=== PATIENT | female | born 1945 | race Caucasian/White ===

== ENCOUNTER → 2018-03-09 | Outpatient (CLI) | payer MEDICARE ==
[~2018-03-09] MED LIST: ACEDIPPM PO; ACET325 PO; CEPH500 PO; CIPR250 PO; COLE1 PO; CYAN100 PO; CYCL10 PO; DILT240 PO; DILT240ER PO; ERGO50000 PO; ESTR1 PO; FENO145 PO; FEXO180 PO; FEXPSEER PO; FURO20 PO; GLUC500 PO; HYDACE5 PO; HYDACE7.5 PO; LOSA25 PO; LOSHYD100 PO; METO5A PO; MULVITMINF PO; ONDA4 PO; ONDA4ODT MM; PANT40 PO; PHENA200 PO; PRAM.5 PO; PROC10 PO; ZOLP10 PO; [UNRECOGNIZED DRUG - OTHER]
[2018-03-09 13:53] LABS: Source, Urine Clean Catch
[2018-03-09 14:36] LABS: Bilirubin, Urine Neg (Neg); Blood, Urine 1+ (Neg); Glucose Qualitative, Urine Neg (Neg); Ketones, Urine Neg (Neg); Leukocyte Esterase, Urine 3+ (Neg); Nitrite, Urine Pos (Neg); Protein, Urine Neg (Neg); Specific Gravity, Urine 1.015 (1.003-1.022); Urobilinogen, Urine NORM (Normal)
[2018-03-09 14:47] LABS: Appearance, Urine Cloudy (Clear); Color, Urine Yellow (P-Yellow)
[2018-03-09 14:49] LABS: Bacteria Many /hpf; Squamous Epithelial Cells Rare /hpf (Few); White Blood Cells, Urine 50-100 /hpf (0-5)
== END | disposition home or self-care (01) ==
LOC: LAB SHORT 13:49 → LAB 13:49
PROVIDERS: Internal Medicine
DX: R30.0 Dysuria (principal)
CPT/HCPCS: 81001; 87077; 87086; 87147; 87186

== ENCOUNTER → 2019-01-07 | Outpatient (CLI) | payer MEDICARE | END | disposition home or self-care (01) | LOC: LAB 12:46 → LAB SHORT 12:46 → LAB FUT 01-05 10:15 | DX: R05 Cough (principal) | CPT/HCPCS: 87070; 87205 ==

== ENCOUNTER 2019-02-18 08:24 | Day surgery (SDC) | payer MEDICARE ==
[2019-04-19] MEDS ORDERED: TORSE20 PO (11:08)
[2019-04-19] MEDS ORDERED: VICODIN ES 7.51 EACH PO (11:08)
[2019-04-19] MEDS ORDERED: LOSA50 PO (11:08)
[2019-04-19] MEDS ORDERED: ONDANSETRON4 MG/2 ML PO (11:09)
[2019-04-19] MEDS ORDERED: Pedi-Dri 100,0060 GM TOP (11:09)
[2019-04-19] MEDS ORDERED: Fluocinonide60 ML TOP (11:10)
== END 2019-02-18 23:50 | disposition home or self-care (01) ==
LOC: MOI US 08:24
PROC: 0HBU3ZX Excision of Left Breast, Percutaneous Approach, Diagnostic (ICD-10-PCS; principal; 2019-02-18)
DX: D05.12 Intraductal carcinoma in situ of left breast (principal)
CPT/HCPCS: 19083; 77065; 88305; 88342; 88360; A4648

== ENCOUNTER 2019-03-14 08:28 | Day surgery (SDC) | payer MEDICARE ==
[2019-04-19] MEDS ORDERED: VICODIN ES 7.51 EACH PO (11:08)
[2019-04-19] MEDS ORDERED: LOSA50 PO (11:08)
[2019-04-19] MEDS ORDERED: TORSE20 PO (11:08)
[2019-04-19] MEDS ORDERED: Pedi-Dri 100,0060 GM TOP (11:09)
[2019-04-19] MEDS ORDERED: ONDANSETRON4 MG/2 ML PO (11:09)
[2019-04-19] MEDS ORDERED: Fluocinonide60 ML TOP (11:10)
== END 2019-03-14 22:52 | disposition home or self-care (01) ==
LOC: MOI US 08:28
DX: D05.12 Intraductal carcinoma in situ of left breast (principal)
CPT/HCPCS: 19285; 77065

== ENCOUNTER 2019-04-20 08:12 | Day surgery (SDC) | payer MEDICARE ==
[~2019-04-20] VITALS: Ht 170.2 cm; Wt 123.5 kg
[~2019-04-20 08:12] MED LIST changes: +Fluocinonide60 ML TOP; +LOSA50 PO; +ONDANSETRON4 MG/2 ML PO; +Pedi-Dri 100,0060 GM TOP; +TORSE20 PO; +VICODIN ES 7.51 EACH PO
--- NOTE | 2019-04-20 10:20 | NUR ---
Patient confirms NPO status and agrees with scheduled surgery. History, Chart, Medications and Allergies reviewed before start of procedure. Patient reports completing Chlorhexadine shower X2 prior to admission to hospital.Surgical site prepped with 2% Chlorhexidine cloth wipe. Patient States Post-Procedure ride home has been arranged. Lungs clear T/O to Auscultation.Ambulatory in Day Surgery
--- NOTE | 2019-04-20 13:11 | NUR ---
Discharge instructions reviewed with patient. Patient verbalizes understanding. Copy given to patient to take home. Patient States Post-Procedure ride home has been arranged. Discharged via wheelchair to private car for ride home.
== END 2019-04-20 13:15 | disposition home or self-care (01) ==
LOC: ORSCMMR 08:12 → ORD 09:45 → ORSCMMR 13:15
PROVIDERS: Surgery
PROC: 0HBU0ZZ Excision of Left Breast, Open Approach (ICD-10-PCS; principal; 2019-04-20 09:45)
DX: D05.12 Intraductal carcinoma in situ of left breast (principal); Z17.0 Estrogen receptor positive status [ER+]; I10 Essential (primary) hypertension; G47.33 Obstructive sleep apnea (adult) (pediatric); K21.9 Gastro-esophageal reflux disease without esophagitis; M79.7 Fibromyalgia; E66.01 Morbid (severe) obesity due to excess calories; Z68.41 Body mass index [BMI] 40.0-44.9, adult; Z79.899 Other long term (current) drug therapy
CPT/HCPCS: 76098; 88307; 88342; 88360; J0690; J1100; J2250; J2405; J2704; J2765; J3010; J7120

== ENCOUNTER 2019-05-23 07:51 | Day surgery (SDC) | payer MEDICARE ==
[~2019-05-23] VITALS: Ht 170.2 cm; Wt 127.5 kg
--- NOTE | 2019-05-23 08:39 | NUR ---
SPOKE WITH PATIENT IN RADIOLOGY DEPARTMENT PRIOR TO ADMIT TO DAY SURGERY. PATEINT DENIES ALLERGY TO HYDROCODONE AND ACETAMINOPHEN AND DESIRES REMOVAL FROM HER ALLERGY LIST.
[2019-05-23] MEDS ORDERED: METO25ER PO (08:46)
--- NOTE | 2019-05-23 09:32 | NUR ---
History, Chart, Medications and Allergies reviewed before start of procedure. Patient confirms NPO status and agrees with scheduled surgery. Patient States Post-Procedure ride home has been arranged with her .
--- NOTE | 2019-05-23 09:38 | NUR ---
Surgical site prepped with 2% Chlorhexidine cloth wipe.
--- NOTE | 2019-05-23 10:54 | NUR ---
PRESCRIPTIONS FROM DR BENTLEY GIVEN TO TO FILL AT PHARMACY. GLASSES BROUGHT TO PACU FOR SAFE KEEPING.
--- NOTE | 2019-05-23 12:53 | NUR ---
PT TO STEP. C/O PAIN TO SURGICAL SITE, 02/09. DRESSING D/I. BREAST BINDER IN PLACED. DR. BENTLEY IN AND SPOKE WITH PT.
--- NOTE | 2019-05-23 13:05 | NUR ---
ICE PACK PLACED TO SURGERY SITE.
--- NOTE | 2019-05-23 13:30 | NUR ---
WRITTEN AND VERBAL D/C INSTUCTIONS GIVEN TO PT AND WITH UNDERSTANDING.
--- NOTE | 2019-05-23 13:35 | NUR ---
NO CHANGE IN INCISION SITE. DRESSING DRY.
== END 2019-05-23 13:50 | disposition home or self-care (01) ==
LOC: NM 07:51 → ORSCMMR 07:51 → NM 09:00 → ORSCMMR 13:50
PROVIDERS: Surgery
PROC: 0HBU0ZZ Excision of Left Breast, Open Approach (ICD-10-PCS; principal; 2019-05-23 10:00)
PROC: 07B60ZX Excision of Left Axillary Lymphatic, Open Approach, Diagnostic (ICD-10-PCS; principal; 2019-05-23 10:00)
DX: D05.12 Intraductal carcinoma in situ of left breast (principal); D36.0 Benign neoplasm of lymph nodes; I10 Essential (primary) hypertension; G47.33 Obstructive sleep apnea (adult) (pediatric); F17.210 Nicotine dependence, cigarettes, uncomplicated; E66.01 Morbid (severe) obesity due to excess calories; Z68.41 Body mass index [BMI] 40.0-44.9, adult; Z79.899 Other long term (current) drug therapy
CPT/HCPCS: 38792; 88307; 88342; A9520; J0690; J1100; J1885; J2250; J2405; J2704; J3010; J7120; Q9968

== ENCOUNTER → 2019-07-11 | Outpatient (CLI) | payer MEDICARE ==
[~2019-07-11] MED LIST changes: +METO25ER PO
== END | disposition home or self-care (01) ==
LOC: LAB 13:48 → LAB SHORT 13:48
DX: L08.0 Pyoderma (principal)
CPT/HCPCS: 87070; 87205

== ENCOUNTER 2019-09-22 08:08 | Day surgery (SDC) | payer MEDICARE ==
[~2019-09-22] VITALS: Ht 165.1 cm; Wt 125.0 kg
[~2019-09-22 08:08] MED LIST changes: +ANASTROZOLE PO; +ATOR20 PO; +Aspirin EC81 MG PO; +Fluocinonide15 GM; +HYDROCODON-ACE1 EAC4 PO; +HYDROCORTISONE30 GM; +METO5 PO; +MULTIPLE VITAM1 EACH PO; +Metoclopramide H5 MG PO; +POTA10T PO; +PRAMIPEXOLE DIHY1 M1; +Pedi-Dri 100,0060 GM; +SPIR50 PO; +Super B Comple1 EAC2 PO; +Vitamin D2000 UNIT
--- NOTE | 2019-09-22 10:03 | NUR ---
09/22/19 1003 Genet Trimble OXYGEN 10L VIA NON REBREATHER
== END 2019-09-22 11:01 | disposition home or self-care (01) ==
LOC: ORSCSDS 08:08
PROVIDERS: Surgery
PROC: 0DBH8ZX Excision of Cecum, Via Natural or Artificial Opening Endoscopic, Diagnostic (ICD-10-PCS; principal; 2019-09-22 09:45)
PROC: 0DBK8ZX Excision of Ascending Colon, Via Natural or Artificial Opening Endoscopic, Diagnostic (ICD-10-PCS; principal; 2019-09-22 09:45)
PROC: 0DBL8ZX Excision of Transverse Colon, Via Natural or Artificial Opening Endoscopic, Diagnostic (ICD-10-PCS; principal; 2019-09-22 09:45)
PROC: 0DBM8ZX Excision of Descending Colon, Via Natural or Artificial Opening Endoscopic, Diagnostic (ICD-10-PCS; principal; 2019-09-22 09:45)
DX: Z12.11 Encounter for screening for malignant neoplasm of colon (principal); Z86.010 Personal history of colon polyps; D12.3 Benign neoplasm of transverse colon; D12.0 Benign neoplasm of cecum; D12.2 Benign neoplasm of ascending colon; D12.4 Benign neoplasm of descending colon; G47.33 Obstructive sleep apnea (adult) (pediatric); I10 Essential (primary) hypertension; K21.9 Gastro-esophageal reflux disease without esophagitis; E66.01 Morbid (severe) obesity due to excess calories; Z68.42 Body mass index [BMI] 45.0-49.9, adult; Z79.899 Other long term (current) drug therapy; Z79.82 Long term (current) use of aspirin
CPT/HCPCS: 82947; 88305; J2250; J2405; J2704; J7120

== ENCOUNTER → 2019-12-05 | Outpatient (CLI) | payer MEDICARE ==
[2019-12-05 14:20] LABS: Source, Urine Clean Catch
[2019-12-05 18:46] LABS: Bilirubin, Urine Neg (Neg); Blood, Urine 2+ (Neg); Glucose Qualitative, Urine Neg (Neg); Ketones, Urine Neg (Neg); Leukocyte Esterase, Urine 1+ (Neg); Nitrite, Urine Neg (Neg); Protein, Urine Neg (Neg); Urobilinogen, Urine NORM (Normal)
[2019-12-05 18:59] LABS: Appearance, Urine Clear (Clear); Color, Urine Yellow (P-Yellow)
[2019-12-05 19:00] LABS: Bacteria Few /hpf; Squamous Epithelial Cells Rare /hpf (Few); White Blood Cells, Urine 0-2 /hpf (0-5)
== END | disposition home or self-care (01) ==
LOC: LAB SHORT 14:18 → LAB 14:18
PROVIDERS: Internal Medicine
DX: R30.0 Dysuria (principal)
CPT/HCPCS: 81001; 87077; 87086; 87186

== ENCOUNTER → 2020-03-20 | Outpatient (CLI) | payer MEDICARE | END | disposition home or self-care (01) | LOC: LAB SHORT 11:07 → LAB 11:07 | DX: L08.0 Pyoderma (principal) | CPT/HCPCS: 87070; 87205 ==

== ENCOUNTER → 2020-11-13 | Outpatient (CLI) | payer MEDICARE | END | disposition home or self-care (01) | LOC: LAB SHORT 08:19 → LAB 08:19 | DX: R30.0 Dysuria (principal) | CPT/HCPCS: 81001; 87077; 87086; 87186 ==

== ENCOUNTER → 2021-01-21 | Outpatient (CLI) | payer MEDICARE | LOC: LAB SHORT 16:20 → LAB 16:20 | DX: L08.0 Pyoderma (principal); Z88.2 Allergy status to sulfonamides; Z88.6 Allergy status to analgesic agent; Z88.8 Allergy status to other drugs, medicaments and biological substances; Z91.040 Latex allergy status; Z91.041 Radiographic dye allergy status | CPT/HCPCS: 87070; 87205 ==

== ENCOUNTER 2021-10-17 18:15 | Emergency (ER) | payer MEDICARE ==
[~2021-10-17] VITALS: Ht 170.2 cm; Wt 113.4 kg
[2021-10-17] MEDS ORDERED: CYCL10 PO (22:40)
[2021-10-17] MEDS ORDERED: IBUP600 PO (22:40)
== END 2021-10-17 22:57 | disposition home or self-care (01) ==
LOC: ER 18:15
DX: S76.011A Strain of muscle, fascia and tendon of right hip, initial encounter (principal); I10 Essential (primary) hypertension; Z88.2 Allergy status to sulfonamides; Z88.8 Allergy status to other drugs, medicaments and biological substances; Z79.899 Other long term (current) drug therapy; Z91.040 Latex allergy status; X58.XXXA Exposure to other specified factors, initial encounter
CPT/HCPCS: 73502; 99283-25; A9270

== ENCOUNTER → 2023-03-05 | Outpatient (CLI) | payer MEDICARE ==
[~2023-03-05] MED LIST changes: +IBUP600 PO
[2023-03-05 08:40] LABS: Source, Urine Clean Catch
[2023-03-05 10:42] LABS: Appearance, Urine Cloudy (Clear); Blood, Urine 2+ (Neg); Glucose Qualitative, Urine Neg (Neg); Ketones, Urine Neg (Neg); Leukocyte Esterase, Urine 3+ (Neg); Nitrite, Urine Pos (Neg); Protein, Urine 2+ (Neg); Urobilinogen, Urine 4+ (Normal); pH, Urine 6.5 (5.0-8.0)
[2023-03-05 10:57] LABS: Bilirubin, Urine 3+ (Neg); Color, Urine Orange (P-Yellow)
[2023-03-05 11:00] LABS: Bacteria Many /hpf
[2023-03-05 11:03] LABS: Squamous Epithelial Cells Few /hpf (Few); White Blood Cells, Urine TNTC /hpf (0-5)
== END | disposition home or self-care (01) ==
LOC: LAB SHORT 08:38 → LAB 08:38
PROVIDERS: Internal Medicine
DX: R30.0 Dysuria (principal)
CPT/HCPCS: 81001; 87077; 87086; 87147; 87186

== ENCOUNTER → 2023-04-21 | Outpatient (CLI) | payer MEDICARE ==
[2023-04-21 08:21] LABS: Source, Urine Clean Catch
[2023-04-21 09:12] LABS: Appearance, Urine Cloudy (Clear); Blood, Urine 3+ (Neg); Glucose Qualitative, Urine Neg (Neg); Ketones, Urine Neg (Neg); Leukocyte Esterase, Urine 3+ (Neg); Nitrite, Urine Pos (Neg); Protein, Urine 2+ (Neg); Specific Gravity, Urine 1.015 (1.003-1.022); Urobilinogen, Urine 3+ (Normal)
[2023-04-21 10:18] LABS: Bilirubin, Urine 3+ (Neg); Color, Urine Amber (P-Yellow)
[2023-04-21 10:19] LABS: Bacteria Mod /hpf; Red Blood Cells, Urine TNTC /hpf (0-2); Squamous Epithelial Cells Few /hpf (Few); White Blood Cells, Urine TNTC /hpf (0-5)
== END | disposition home or self-care (01) ==
LOC: LAB SHORT 08:15 → LAB 08:15
PROVIDERS: Internal Medicine
DX: R30.0 Dysuria (principal)
CPT/HCPCS: 81001; 87077; 87086; 87147; 87186

== ENCOUNTER 2023-06-04 11:41 | Day surgery (SDC) | payer MEDICARE ==
[~2023-06-04] VITALS: Ht 170.2 cm; Wt 109.8 kg
--- NOTE | 2023-06-04 13:04 | NUR ---
06/04/23 1304 Nohemy Wright 1248: VERBAL ORDER DR GONZALEZ FOR 1 MG VERSED PO PRIOR TO PROCEDURE
[2023-06-04 14:16] VITALS: BP 125/78
--- NOTE | 2023-06-04 14:16 | NUR ---
06/04/23 1416 Ranjith Day IV REMOVED INTACT. SITE WNL. PT STATES B/P'S RECORDED ARE WITHIN 20% OF BASELINE.
== END 2023-06-04 14:10 | disposition home or self-care (01) ==
LOC: ORSCSDS 11:41
PROVIDERS: Ophthalmology
PROC: 08RJ3JZ Replacement of Right Lens with Synthetic Substitute, Percutaneous Approach (ICD-10-PCS; principal; 2023-06-04 13:00)
DX: H25.11 Age-related nuclear cataract, right eye (principal); I12.9 Hypertensive chronic kidney disease with stage 1 through stage 4 chronic kidney disease, or unspecified chronic kidney disease; N18.9 Chronic kidney disease, unspecified; G47.30 Sleep apnea, unspecified; E78.5 Hyperlipidemia, unspecified; K21.9 Gastro-esophageal reflux disease without esophagitis; E66.01 Morbid (severe) obesity due to excess calories; Z68.37 Body mass index [BMI] 37.0-37.9, adult; Z79.82 Long term (current) use of aspirin; Z79.899 Other long term (current) drug therapy
CPT/HCPCS: J2250; J3301; J7040; V2632

== ENCOUNTER 2023-07-02 10:35 | Day surgery (SDC) | payer MEDICARE ==
[~2023-07-02] VITALS: Ht 170.2 cm; Wt 108.1 kg
--- NOTE | 2023-07-02 11:26 | NUR ---
07/02/23 1126 Rachell Ramirez TETRACAINE PLACED IN LEFT EYE AT 1103. PLEDGET PLACED IN LEFT EYE AT 1104. PATIENT TOLERATED WELL.
[2023-07-02 12:08] VITALS: BP 130/80
== END 2023-07-02 12:28 | disposition home or self-care (01) ==
LOC: ORSCSDS 10:35
PROVIDERS: Ophthalmology
PROC: 08RK3JZ Replacement of Left Lens with Synthetic Substitute, Percutaneous Approach (ICD-10-PCS; principal; 2023-07-02 12:00)
DX: H25.12 Age-related nuclear cataract, left eye (principal); I25.10 Atherosclerotic heart disease of native coronary artery without angina pectoris; G47.33 Obstructive sleep apnea (adult) (pediatric); I12.9 Hypertensive chronic kidney disease with stage 1 through stage 4 chronic kidney disease, or unspecified chronic kidney disease; N18.9 Chronic kidney disease, unspecified; Z79.82 Long term (current) use of aspirin; Z79.899 Other long term (current) drug therapy
CPT/HCPCS: J2250; J3301; J7040; V2632

== ENCOUNTER → 2024-05-03 | Outpatient (CLI) | payer MEDICARE ==
[2024-05-03 17:26] LABS: BASOPHILS ABSOLUTE AUTO 0.04 K/mm3 (0.00-0.23); BASOPHILS PERCENT AUTO 0 % (0-2); EOSINOPHILS ABSOLUTE AUTO 0.25 K/mm3 (0.00-0.68); EOSINOPHILS PERCENT AUTO 2 % (0-6); Hematocrit 37.9 % (33.0-51.0); IMMATURE GRAN ABSOLUTE AUTO 0.03 K/mm3 (0.00-0.10); IMMATURE GRAN PERCENT AUTO 0 % (0-1); LYMPHOCYTES ABSOLUTE AUTO 1.43 K/mm3 (0.84-5.20); LYMPHOCYTES PERCENT AUTO 14 % (21-46); MONOCYTES ABSOLUTE AUTO 0.37 K/mm3 (0.16-1.47); MONOCYTES PERCENT AUTO 4 % (4-13); Mean Corpuscular HGB 31.3 pg (26.0-34.0); Mean Corpuscular HGB Conc 31.7 g/dL (31.5-36.5); Mean Corpuscular Volume 99 fL (80-100); Mean Platelet Volume 9.6 fL (9.1-12.4); NEUTROPHILS ABSOLUTE AUTO 8.12 K/mm3 (1.96-9.15); NEUTROPHILS PERCENT AUTO 79 % (41-73); Platelet Count 292 K/mm3 (150-400); RDW Coefficient Variation 14.1 % (11.7-14.2); RDW Standard Deviation 50.8 fL (35.1-46.3); Red Blood Cell Count 3.83 M/mm3 (3.80-5.20); White Blood Cell Count 10.24 K/mm3 (4.00-11.30)
[2024-05-03 20:56] LABS: Bun/Creatinine Ratio 10.9 (12.0-20.0); Calcium, Blood 9.4 mg/dL (8.5-10.1); Creatinine, Blood 1.1 mg/dL (0.40-1.00); Potassium, Blood 3.5 mmol/L (3.5-5.5)
== END | disposition home or self-care (01) ==
LOC: LAB SHORT 14:51 → LAB 14:51
PROVIDERS: Internal Medicine
DX: N18.1 Chronic kidney disease, stage 1 (principal); R60.0 Localized edema; R73.9 Hyperglycemia, unspecified
CPT/HCPCS: 80048; 83036; 83880; 85025

== ENCOUNTER → 2025-06-06 | Outpatient (CLI) | payer MEDICARE | END | disposition home or self-care (01) | LOC: LAB 07:23 → LAB SHORT 07:23 | DX: D49.0 Neoplasm of unspecified behavior of digestive system (principal) | CPT/HCPCS: 88173 ==